=== PATIENT | male | born 1980 | race Caucasian/White ===

== ENCOUNTER 2020-12-09 20:50 | Emergency (ER) | payer OTHER ==
[2020-12-09 21:17] VITALS: PULSE 92; TEMP 99.5; BMI 27.5
[2020-12-09] MEDS ORDERED: AZITHROMYCIN 250 MG TABLET PO ONE (21:17)
[2020-12-09] MEDS ORDERED: PSEUDOEPHEDRINE HCL 30 MG TABLET ONE (21:23)
[2020-12-09] MEDS ORDERED: AZITHROMYCIN 250 MG TABLET ONE (21:23)
[2020-12-09] MEDS ORDERED: IBUPROFEN 600 MG TABLET (FP) PO ONE ×2 (21:26→21:29)
[2020-12-09] MEDS ORDERED: AMOX TR/POT CLAV 875MG/125MG TABLETS (FP) PO ONE (21:26)
[2020-12-09] MEDS ORDERED: DIPHTH,PERTUSS(ACELL),TET 0.5 ML DISP.SYRIN IM ONE ×2 (21:26→21:30)
[2020-12-09] MEDS ORDERED: AMOX TR/POT CLAV 875MG/125MG TABLETS (FP) ONE (21:29)
[2020-12-09] MEDS ORDERED: PSEUDOEPHEDRINE HCL 60 MG TABLET PO ONE (21:30)
[2020-12-09 21:41] VITALS: BP 122/80
== END 2020-12-09 21:43 | disposition home or self-care (01) ==
LOC: FER 20:50
PROC: 3E0234Z Introduction of Serum, Toxoid and Vaccine into Muscle, Percutaneous Approach (ICD-10-PCS; principal; 2020-12-09)
DX: J01.90 Acute sinusitis, unspecified (principal)
CPT/HCPCS: 90715; 99285-25